=== PATIENT | female | born 1965 | race Caucasian/White ===

== ENCOUNTER 2017-11-24 15:56 | Emergency (ER) | payer MEDICAID ==
[~2017-11-24] VITALS: Ht 160 cm; Wt 61.4 kg
[~2017-11-24 15:56] MED LIST: NOCURR
[2017-11-24] MEDS ORDERED: IBUPROFEN 600 MG TABLET PO ONE (17:30)
[2017-11-24] MEDS ORDERED: PERTUSS(ACELL),DIPH,TET VAC/PF 0.5 ML VIAL IM ONE (17:30)
[2017-11-24] MEDS ORDERED: BACITRACIN 0.9 GM PACKET OINTMENT TP ONE (17:30)
[2017-11-24] MEDS ORDERED: HYDROCODONE/ACETAMINOPHEN 5-325 MG TABLET PO ONE (17:30)
[2017-11-24 18:19] VITALS: BP 118/72
== END 2017-11-24 18:53 | disposition home or self-care (01) ==
LOC: EMS 15:57
DX: S00.531A Contusion of lip, initial encounter (principal); S00.83XA Contusion of other part of head, initial encounter; Y04.0XXA Assault by unarmed brawl or fight, initial encounter; Y93.89 Activity, other specified; Y92.89 Other specified places as the place of occurrence of the external cause; Y99.8 Other external cause status
CPT/HCPCS: 70450; 90471; 90715; 99284

== ENCOUNTER 2022-12-08 21:19 | Emergency (ER) | payer MEDICAID, OTHER ==
[~2022-12-08] VITALS: Ht 160 cm; Wt 64.0 kg
[2022-12-08] MEDS ORDERED: PERTUSS(ACELL),DIPH,TET VAC/PF 0.5 ML SYRINGE IM. ONE (22:30)
[2022-12-08] MEDS ORDERED: SULFAMETHOX/TRIMETH DS 800-160 MG/TABLET PO ONE (23:00)
[2022-12-08] MEDS ORDERED: IBUPROFEN 400 MG TABLET PO ONE (23:00)
[2022-12-08] MEDS ORDERED: SULF-261 PO (23:09)
[2022-12-08] MEDS ORDERED: BACITRACIN 0.9 GM PACKET OINTMENT TP ONE (23:15)
[2022-12-08 23:43] VITALS: BP 109/66; PULSE 74; RESP 16; TEMP 97.3
== END 2022-12-09 | disposition home or self-care (01) ==
LOC: EMS 21:20
DX: S61.213A Laceration without foreign body of left middle finger without damage to nail, initial encounter (principal); S61.215A Laceration without foreign body of left ring finger without damage to nail, initial encounter; S61.217A Laceration without foreign body of left little finger without damage to nail, initial encounter; M19.90 Unspecified osteoarthritis, unspecified site; W26.8XXA Contact with other sharp object(s), not elsewhere classified, initial encounter; Y93.89 Activity, other specified; Y92.89 Other specified places as the place of occurrence of the external cause; Y99.8 Other external cause status
CPT/HCPCS: 90471; 90715; 99283; 99284